=== PATIENT | male | born 1980 | race Caucasian/White ===

== ENCOUNTER 2017-12-25 12:09 | Emergency (ER) | payer SELFPAY ==
[~2017-12-25] VITALS: Ht 170.2 cm; Wt 83.5 kg
[2017-12-25 12:20] VITALS: Ht 170.2 cm; Wt 83.5 kg
[2017-12-25 15:51] VITALS: BP 140/95
== END 2017-12-25 15:51 | disposition home or self-care (01) ==
LOC: ED 12:09
DX: N45.2 Orchitis (principal)
CPT/HCPCS: 87491; 87591; J0696; J2270; Q0092; Q0162

== ENCOUNTER 2018-09-18 16:06 | Emergency (ER) | payer MEDICAID ==
[~2018-09-18] VITALS: Ht 170.2 cm; Wt 76.4 kg
[2018-09-18 16:30] VITALS: Ht 170.2 cm; Wt 76.4 kg
[2018-09-18 19:01] LABS: PLATELET COUNT 291 x10^3mcL (130-400); RED CELL DISTRIBUTION WIDTH 12.4 % (11.5-14.5)
[2018-09-18 19:10] LABS: CALCIUM 8.9 mg/dL (8.5-10.1); CARBON DIOXIDE 30.3 mmol/L (21-32); CHLORIDE SERUM 98 mmol/L (98-107); CREATININE SERUM 0.9 mg/dL (0.7-1.3); GFR1 > 60 mL/min; GLUCOSE SERUM 110 mg/dL (74-106); POTASSIUM SERUM 3.3 mmol/L (3.5-5.1); SODIUM SERUM 136 mmol/L (136-145)
[2018-09-18 19:15] LABS: ALBUMIN 3.4 g/dL (3.4-5.0); ALKALINE PHOSPHATASE 89 U/L (46-116); ALT/SGPT 9 U/L (16-63); AST/SGOT 27 U/L (15-37); BILIRUBIN TOTAL 1.02 mg/dL (0.20-1.00); TOTAL PROTEIN, SERUM 7.8 g/dL (6.4-8.2)
[2018-09-18 19:20] LABS: BAND NEUTROPHIL 2 % (0-10); BASOPHIL 0 % (0-2); MONOCYTE 4 % (0-7); SEGMENTED NEUTROPHILS 89 % (37-75)
[2018-09-18 19:21] LABS: rbc morphology (normal/abnorm) NORMAL (NORMAL)
[2018-09-18 20:35] LABS: UA SPECIFIC GRAVITY 1.015 (1.005-1.035); microscopic required? YES; urine erythrocyte NEGATIVE (NEGATIVE)
[2018-09-18 21:54] VITALS: BP 148/76
== END 2018-09-18 21:54 | disposition short-term general hospital (02) ==
LOC: ED 16:06
PROVIDERS: Specialist
DX: N45.3 Epididymo-orchitis (principal); N39.0 Urinary tract infection, site not specified; D72.829 Elevated white blood cell count, unspecified
CPT/HCPCS: J0696; J3490; J7030; Q0092